=== PATIENT | female | born 1960 | race Caucasian/White ===

== ENCOUNTER 2018-03-15 15:03 | Observation (INO) | payer OTHER ==
[2018-03-15] VITALS (7 sets, daily range): BP systolic 118–143; BP diastolic 74–96; PULSE 62–76; RESP 16–19; TEMP 97.6–98.3; O2SAT 68–96
[~2018-03-15] VITALS: Ht 160 cm; Wt 53.0 kg
[~2018-03-15 15:03] MED LIST: EPIP0.3I IM; HYDR10SO PO; KETO2AER3 TOP
[2018-03-15] MEDS ORDERED: SODIUM CHLORIDE 0.9% FLUSH 10 ML FLUSH IVF PRN (15:15)
--- NOTE | 2018-03-15 15:18 | PD ---
HPI Chief Complaint: Chest Pain Time Seen by Provider: 15:08 Travel History International Travel<30 days: No Contact w/Intl Traveler<30days: No Traveled to known affect area: No History of Present Illness HPI 57-year-old female patient with history of no significant past medical issues, presents to the ER today because she states that she ate a coworkers cake and started feeling very itchy all over, nauseous, and thought that she was having allergic reaction, took Benadryl, and started getting chest discomfort and dizzy. When EMS got there, they noted that she was bradycardic in the 30s at one point, having occasional PVCs, and were concerned about cardiac issues, gave her aspirin and nitroglycerin. In the ER, she states she is still having some chest discomfort but she states it is now subsiding. She denies giving herself any epinephrine even though she has an EpiPen. Modifying Factors: None Associated Signs & Symptoms: Possible allergic reaction, palpitations, dizziness Risk Factors: None PFSH Past Medical History Medical History: Denies Significant Hx Cancer: No Diabetes: No Diminished Hearing: No Glaucoma: No Hepatitis: No Hiatal Hernia: No Hypertension: No Immunizations Current: Yes Thyroid Disease: No Tetanus Vaccination: > 5 Years Influenza Vaccination: No ?: Not Menopausal: Yes Past Surgical History Abdominal Surgery: No Cardiac Surgery: No Section: Yes (X2) Ear Surgery: No Endocrine Surgery: No Eye Surgery: No Genitourinary Surgery: No Gynecologic Surgery: Yes (C/S X2) Oral Surgery: Yes (TONSILLECTOMY) Pacemaker: No Thoracic Surgery: No Tonsillectomy: Yes Other Surgery: Yes Social History Alcohol Use: Yes (GLASS OF WINE DAILY) Tobacco Use: Yes (1/2 PPD X 31 YEARS) Substance Use: No Allergies-Medications (Allergen,Severity, Reaction): Coded Allergies: No Known Allergies (Verified Allergy, Unknown, 03/15/18) Reported Meds & Prescriptions Reported Meds & Active Scripts Active No Active Prescriptions or Reported Medications Review of Systems Except as stated in HPI: all other systems reviewed are Neg Physical Exam Narrative GENERAL: Well-developed middle-age female patient currently in mild distress. Awake and oriented 3. SKIN: Focused skin assessment warm/dry. HEAD: Atraumatic. Normocephalic. EYES: Pupils equal and round. No scleral icterus. No injection or drainage. ENT: No nasal bleeding or discharge. Mucous membranes pink and moist. NECK: Trachea midline. No JVD.-Supple. CARDIOVASCULAR: Regular rate and rhythm. No murmur appreciated. RESPIRATORY: No accessory muscle use. Clear to auscultation. Breath sounds equal bilaterally. GASTROINTESTINAL: Abdomen soft, non-tender, nondistended. Hepatic and splenic margins not palpable. MUSCULOSKELETAL: No obvious deformities. No clubbing. No cyanosis. No edema. NEUROLOGICAL: Awake and alert. No obvious cranial nerve deficits. Motor grossly within normal limits. Normal speech. PSYCHIATRIC: Appropriate mood and affect; insight and judgment normal. Data Data Last Documented VS Vital Signs Date Time Temp Pulse Resp B/P (MAP) Pulse Ox O2 Delivery O2 Flow Rate FiO2 03/15/18 17:02 70 17 133/88 (103) 96 Room Air 03/15/18 15:06 97.6 Orders Orders Electrocardiogram (03/15/18 15:07) Ckmb (Isoenzyme) Profile (03/15/18 15:07) Complete Blood Count With Diff (03/15/18 15:07) Comprehensive Metabolic Panel (03/15/18 15:07) Magnesium (Mg) (03/15/18 15:07) Prothrombin Time / Inr (Pt) (03/15/18 15:07) Act Partial Throm Time (Ptt) (03/15/18 15:07) Troponin I (03/15/18 15:07) Lipase (03/15/18 15:07) Chest, Single Ap (03/15/18 15:07) Ecg Monitoring (03/15/18 15:07) Bilateral Bp Monitoring (03/15/18 15:07) Iv Access Insert/Monitor (03/15/18 15:07) Oximetry (03/15/18 15:07) Oxygen Administration (03/15/18 15:07) Sodium Chloride 0.9% Flush (Ns Flush) (03/15/18 15:15) CKMB (03/15/18 15:55) CKMB% (03/15/18 15:55) Admit Order (Ed Use Only) (03/15/18 17:12) Labs Laboratory Tests Test 03/15/18 15:10 03/15/18 15:55 White Blood Count 6.4 TH/MM3 Red Blood Count 4.77 MIL/MM3 Hemoglobin 15.9 GM/DL Hematocrit 46.1 % Mean Corpuscular Volume 96.6 FL Mean Corpuscular Hemoglobin 33.2 PG Mean Corpuscular Hemoglobin Concent 34.4 % Red Cell Distribution Width 13.0 % Platelet Count 168 TH/MM3 Mean Platelet Volume 8.5 FL Neutrophils (%) (Auto) 59.2 % Lymphocytes (%) (Auto) 35.3 % Monocytes (%) (Auto) 5.1 % Eosinophils (%) (Auto) 0.2 % Basophils (%) (Auto) 0.2 % Neutrophils # (Auto) 3.8 TH/MM3 Lymphocytes # (Auto) 2.3 TH/MM3 Monocytes # (Auto) 0.3 TH/MM3 Eosinophils # (Auto) 0.0 TH/MM3 Basophils # (Auto) 0.0 TH/MM3 CBC Comment DIFF FINAL Differential Comment Prothrombin Time 10.7 SEC Prothromb Time International Ratio 1.1 RATIO Activated Partial Thromboplast Time 23.3 SEC Blood Urea Nitrogen 15 MG/DL Creatinine 0.67 MG/DL Random Glucose 113 MG/DL Total Protein 6.5 GM/DL Albumin 3.9 GM/DL Calcium Level 8.5 MG/DL Magnesium Level 1.8 MG/DL Alkaline Phosphatase 79 U/L Aspartate Amino Transf (AST/SGOT) 13 U/L Alanine Aminotransferase (ALT/SGPT) 20 U/L Total Bilirubin 0.4 MG/DL Sodium Level 141 MEQ/L Potassium Level 3.7 MEQ/L Chloride Level 104 MEQ/L Carbon Dioxide Level 27.7 MEQ/L Anion Gap 9 MEQ/L Estimat Glomerular Filtration Rate 91 ML/MIN Total Creatine Kinase 131 U/L Creatine Kinase MB 2.2 NG/ML Troponin I LESS THAN 0.02 NG/ML Lipase 174 U/L MDM Medical Decision Making Medical Screen Exam Complete: Yes Emergency Medical Condition: Yes Medical Record Reviewed: Yes Interpretation(s) EKG shows NSR, no ST elevation or depression, and no arrhythmias. No significant T-wave inversions. Laboratory Tests Test 03/15/18 15:10 03/15/18 15:55 Hemoglobin 15.9 GM/DL (11.6-15.3) Hematocrit 46.1 % (35.0-46.0) Activated Partial Thromboplast Time 23.3 SEC (24.3-30.1) Random Glucose 113 MG/DL (74-106) Aspartate Amino Transf (AST/SGOT) 13 U/L (15-37) Troponin I LESS THAN 0.02 NG/ML Last 24 hours Impressions Chest X-Ray 03/15/18 1507 Signed Impressions: Service Date/Time: Thursday, March 15, 2018 15:11 - CONCLUSION: No acute disease. Patrick Ellis MD FACR Differential Diagnosis Allergic reaction versus ACS versus dysrhythmias versus medication side effect Narrative Course EKG did not show any signs of dysrhythmias. Lab work was fairly unremarkable. Chest x-ray was unremarkable. Patient did not have further episodes of dysrhythmias in the ER. At this point, I am a little concerned about her symptoms and whether the bradycardia could have been related to some underlying cardiac issue or a medication side effect. At this point, my plan would be to admit the patient for further evaluation. Case was discussed with [facility] hospitalist Dr. Pina for admission. Diagnosis Primary Impression: Atypical chest pain Admitting Information Admitting Physician Requests: Admit Scripts No Active Prescriptions or Reported Meds Kelsey Luther MD March 15, 2018 15:18
[2018-03-15 15:26] LABS: AUTOMATED NEUTROPHIL # 3.8 TH/MM3 (1.8-7.7); BASOPHIL % 0.2 % (0.0-2.0); EOSINOPHIL % 0.2 % (0.0-4.0); HEMATOCRIT 46.1 % (35.0-46.0); HEMOGLOBIN 15.9 GM/DL (11.6-15.3); LYMPH % 35.3 % (9.0-44.0); LYMPHOCYTE # 2.3 TH/MM3 (1.0-4.8); MEAN CELL VOLUME 96.6 FL (80.0-100.0); MEAN CORPUSCULAR HEMOGLOBIN 33.2 PG (27.0-34.0); MEAN CORPUSCULAR HGB CONC 34.4 % (32.0-36.0); MEAN PLATELET VOLUME 8.5 FL (7.0-11.0); MONO % 5.1 % (0.0-8.0); MONOCYTE # 0.3 TH/MM3 (0-0.9); NEUT % 59.2 % (16.0-70.0); PLATELET COUNT 168 TH/MM3 (150-450); RED BLOOD COUNT 4.77 MIL/MM3 (4.00-5.30); WHITE BLOOD COUNT 6.4 TH/MM3 (4.0-11.0)
[2018-03-15 15:33] LABS: INTERNATIONAL NORMALIZED RATIO 1.1 RATIO; PROTHROMBIN TIME - PATIENT 10.7 SEC (9.8-11.6)
--- NOTE | 2018-03-15 15:45 | RADRPT ---
EXAM DATE/TIME: 03/15/2018 15:11 [place] COMPARISON: No previous studies available for comparison. INDICATIONS : Chest pain. MEDICAL HISTORY : None. SURGICAL HISTORY : None. ENCOUNTER: Initial ACUITY: 1 day PAIN SCORE: 3/10 LOCATION: chest FINDINGS: A single view of the chest demonstrates the lungs to be symmetrically aerated without evidence of mas s, infiltrate or effusion. The cardiomediastinal contours are unremarkable. Osseous structures are intact. CONCLUSION: No acute disease. Patrick Ellis MD FACR on March 15, 2018 at 15:43 Board Certified Radiologist. This report was verified electronically.
[2018-03-15 16:36] LABS: ALBUMIN 3.9 GM/DL (3.4-5.0); ALT (GPT) 20 U/L (10-53); AST (GOT) 13 U/L (15-37); BICARBONATE 27.7 MEQ/L (21.0-32.0); BLOOD UREA NITROGEN 15 MG/DL (7-18); CALCIUM 8.5 MG/DL (8.5-10.1); CHLORIDE 104 MEQ/L (98-107); CREATININE 0.67 MG/DL (0.50-1.00); GLOMERULAR FILTRATION RATE 91 ML/MIN (>89); GLUCOSE,RANDOM 113 MG/DL (74-106); MAGNESIUM 1.8 MG/DL (1.5-2.5); SODIUM (NA) 141 MEQ/L (136-145)
[2018-03-15 16:41] LABS: ALKALINE PHOSPHATASE 79 U/L (45-117); TOTAL BILIRUBIN ADULT 0.4 MG/DL (0.2-1.0); TOTAL PROTEIN 6.5 GM/DL (6.4-8.2); TROPONIN I LESS THAN 0.02 NG/ML (0.02-0.05)
[2018-03-15] MEDS ORDERED: ONDANSETRON HCL 4 MG/2 ML VIAL IVP PRN (17:30)
[2018-03-15] MEDS ORDERED: SENNOSIDES 8.6 MG TAB PO PRN (17:30)
[2018-03-15] MEDS ORDERED: SODIUM CHLORIDE 0.9% FLUSH 10 ML FLUSH IV FLUSH PRN (17:30)
[2018-03-15] MEDS ORDERED: LACTULOSE SYRUP 20 GM/30 ML CUP PO PRN (17:30)
[2018-03-15] MEDS ORDERED: ACETAMINOPHEN 325 MG TAB PO PRN (17:30)
[2018-03-15] MEDS ORDERED: MAGNESIUM HYDROXIDE SUSP 30 ML CUP PO PRN (17:30)
[2018-03-15] MEDS ORDERED: NALOXONE HCL 0.4 MG/ML AMP IV PUSH PRN (17:30)
[2018-03-15] MEDS ORDERED: BISACODYL 10 MG SUPP RECTAL PRN (17:30)
[2018-03-15] MEDS ORDERED: ACETAMINOPHEN/HYDROcodone 325 MG/10 MG TAB PO PRN (17:45)
[2018-03-15 18:25] LABS: TROPONIN I LESS THAN 0.02 NG/ML (0.02-0.05)
[2018-03-15] MEDS: SODIUM CHLORIDE 0.9% FLUSH 10 ML FLUSH IV FLUSH SCH (19:43)
[2018-03-16 02:22] VITALS: PULSE 71
[2018-03-16 04:05] VITALS: BP 118/70; PULSE 60; RESP 16; TEMP 99.2; O2SAT 98
[2018-03-16 08:04] VITALS: BP 130/81; PULSE 66; RESP 18; TEMP 98; O2SAT 94
[2018-03-16 08:13] LABS: BICARBONATE 28.1 MEQ/L (21.0-32.0); CALCIUM 8.9 MG/DL (8.5-10.1); CREATININE 0.64 MG/DL (0.50-1.00)
[2018-03-16 08:16] LABS: TROPONIN I LESS THAN 0.02 NG/ML (0.02-0.05)
[2018-03-16 09:00] VITALS: PULSE 64
[2018-03-16] MEDS: SODIUM CHLORIDE 0.9% FLUSH 10 ML FLUSH IV FLUSH SCH (09:00)
--- NOTE | 2018-03-16 09:41 | HHI.HP ---
HPI Service [facility] Hospitalists Primary Care Physician Armando Nolasco MD Admission Diagnosis Atypical chest pain Chief Complaint: Possible allergic reaction Travel History International Travel<30 Days: No Contact w/Intl Traveler <30 Da: No Traveled to Known Affected Are: No History of Present Illness Mrs. Hardy is a pleasant 57 y/o WF with arthritis and chronic neck pain. She presented to the ED at [facility] on 03/15/18 for a presumed allergic reaction. 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 Within 15 minutes she was having generalized itching and her hands and feet were red. She felt like her lips, tongue and throat were swelling, felt lightheaded and shaky and felt like she was going to pass out. She had a severe allergic reaction to red ant bites in the past and felt that these symptoms were similar. Pt took 2 Benadryl about 45-60mins after onset of symptoms with some improvement in the itching but her hands still felt like "pins and needles." She felt like she had significant pressure in the epigastric area which felt like she needed to belch when she arrived to the ED. She reports that she had been taking some deep breaths and felt that this may have caused this sensation. A coworker called [employer] and per the ED notes when EMS got there, they noted that she was bradycardic in the 30s at one point, having occasional PVCs, and were concerned about cardiac issues, so they gave her aspirin and nitroglycerin. Pt did not have any change in her symptoms with the ASA and Nitro. By the time she arrived to the ED the itching and pins and needles feeling had resolved but the pt still felt swollen. The epigastric/lower chest pressure resolved overnight. Overnight pts swelling sensation has resolved as well. She did not require any further Benadryl or Epinephrine in the ED. She had some nausea overnight but this resolved with Zofran. There have been no abnormalities noted on telemetry overnight. This morning pt feels at her baseline and wants to go home. Review of Systems Constitutional: DENIES: Diaphoretic episodes, Fever, Chills, Dizziness Eyes: DENIES: Vision loss Ears, nose, mouth, throat: DENIES: Hearing loss Respiratory: DENIES: Cough, Shortness of breath Cardiovascular: DENIES: Chest pain, Lower Extremity Edema Gastrointestinal: COMPLAINS OF: Nausea, DENIES: Abdominal pain, Constipation, Diarrhea, Vomiting Genitourinary: DENIES: Urinary incontinence, Hematuria, Dysuria Musculoskeletal: COMPLAINS OF: Joint pain (chronic) Integumentary: COMPLAINS OF: Abnormal pigmentation, Pruritus Neurologic: DENIES: Headache Psychiatric: DENIES: Confusion Past Family Social History Past Medical History Arthritis in her hand/neck Past Surgical History Cesarian section x 2 Bilateral breast augmentation Reported Medications Hydrocodone/Acetaminophen 10/325mg takes 1-3 tablets per day PRN Allergies: Coded Allergies: No Known Allergies (Verified Allergy, Unknown, 03/15/18) Family History Noncontributory Social History (+)tobacco use, 1/2ppd since age 15 (+)alcohol use, drinks about 3-5 glasses per week Denies any illicit drug use Pt works as a chairman She has two children, ages 26 and 22. Pt is . Physical Exam Vital Signs Vital Signs Date Time Temp Pulse Resp B/P (MAP) Pulse Ox O2 Delivery O2 Flow Rate FiO2 03/16/18 08:04 98.0 66 18 130/81 (97) 94 03/16/18 04:05 99.2 60 16 118/70 (86) 98 03/16/18 02:22 71 03/15/18 23:35 98.0 62 16 126/74 (91) 93 03/15/18 19:51 98.3 70 16 124/80 (95) 96 03/15/18 18:13 98.2 68 18 119/85 (96) 68 03/15/18 17:46 03/15/18 17:02 70 17 133/88 (103) 96 Room Air 03/15/18 15:17 118/81 (93) 143/96 (112) 03/15/18 15:14 94 Room Air 03/15/18 15:06 97.6 76 19 118/81 (93) 94 Physical Exam GENERAL: This is a well-nourished, well-developed patient, in no apparent distress. SKIN: No rashes, ecchymoses or lesions. Cool and dry. HEENT: Atraumatic. Normocephalic. No temporal or scalp tenderness. No scleral icterus. Airway patent. NECK: Trachea midline, supple, nontender. CARDIO: Regular. RESP: CTA bilaterally. No wheezes, rales, or rhonchi. ABD: +BS, soft, non-tender, nondistended. EXT: Extremities without clubbing, cyanosis, or edema. NEURO: Awake and alert. Motor and sensory grossly within normal limits. Normal speech. Laboratory Laboratory Tests Test 03/15/18 15:10 03/15/18 15:55 03/15/18 17:40 03/16/18 06:50 White Blood Count 6.4 Red Blood Count 4.77 Hemoglobin 15.9 Hematocrit 46.1 Mean Corpuscular Volume 96.6 Mean Corpuscular Hemoglobin 33.2 Mean Corpuscular Hemoglobin Concent 34.4 Red Cell Distribution Width 13.0 Platelet Count 168 Mean Platelet Volume 8.5 Neutrophils (%) (Auto) 59.2 Lymphocytes (%) (Auto) 35.3 Monocytes (%) (Auto) 5.1 Eosinophils (%) (Auto) 0.2 Basophils (%) (Auto) 0.2 Neutrophils # (Auto) 3.8 Lymphocytes # (Auto) 2.3 Monocytes # (Auto) 0.3 Eosinophils # (Auto) 0.0 Basophils # (Auto) 0.0 CBC Comment DIFF FINAL Differential Comment Prothrombin Time 10.7 Prothromb Time International Ratio 1.1 Activated Partial Thromboplast Time 23.3 Blood Urea Nitrogen 15 10 Creatinine 0.67 0.64 Random Glucose 113 90 Total Protein 6.5 Albumin 3.9 Calcium Level 8.5 8.9 Magnesium Level 1.8 Alkaline Phosphatase 79 Aspartate Amino Transf (AST/SGOT) 13 Alanine Aminotransferase (ALT/SGPT) 20 Total Bilirubin 0.4 Sodium Level 141 144 Potassium Level 3.7 4.0 Chloride Level 104 107 Carbon Dioxide Level 27.7 28.1 Anion Gap 9 9 Estimat Glomerular Filtration Rate 91 96 Total Creatine Kinase 131 122 78 Creatine Kinase MB 2.2 Troponin I LESS THAN 0.02 LESS THAN 0.02 LESS THAN 0.02 Lipase 174 Result Diagram: 03/15/18 1510 03/16/18 0650 Imaging Last Impressions Chest X-Ray 03/15/18 1507 Signed Impressions: Service Date/Time: Thursday, March 15, 2018 15:11 - CONCLUSION: No acute disease. Patrick Ellis MD FACShannan Naranjoi VTE Risk Assessment Caprini VTE Risk Assessment: No/Low Risk (score <= 1) Caprini Risk Assessment Model Point Value = 1 Point Value = 2 Point Value = 3 Point Value = 5 Age 41-60 Minor surgery BMI > 25 kg/m2 Swollen legs Varicose veins or History of unexplained or recurrent spontaneous Oral contraceptives or hormone replacement Sepsis (< 1 month) Serious lung disease, including pneumonia (< 1 month) Abnormal pulmonary function Acute myocardial infarction Congestive heart failure (< 1 month) History of inflammatory bowel disease Medical patient at bed rest Age 61-74 Arthroscopic surgery Major open surgery (> 45 min) Laparoscopic surgery (> 45 min) Malignancy Confined to bed (> 72 hours) Immobilizing plaster cast Central venous access Age >= 75 History of VTE Family history of VTE Factor V Leiden Prothrombin [id number] Lupus anticoagulant Anticardiolipin antibodies Elevated serum homocysteine Heparin-induced thrombocytopenia Other congenital or acquired thrombophilia Stroke (< 1 month) Elective arthroplasty Hip, pelvis, or leg fracture Acute spinal cord injury (< 1 month) Prophylaxis Regimen Total Risk Factor Score Risk Level Prophylaxis Regimen 0-1 Low Early ambulation 2 Moderate Order ONE of the following: *Sequential Compression Device (SCD) *Heparin 5000 units SQ BID 3-4 Higher Order ONE of the following medications: *Heparin 5000 units SQ TID *Enoxaparin/Lovenox 40 mg SQ daily (WT < 150 kg, CrCl > 30 mL/min) *Enoxaparin/Lovenox 30 mg SQ daily (WT < 150 kg, CrCl > 10-29 mL/min) *Enoxaparin/Lovenox 30 mg SQ BID (WT < 150 kg, CrCl > 30 mL/min) AND/OR *Sequential Compression Device (SCD) 5 or more Highest Order ONE of the following medications: *Heparin 5000 units SQ TID (Preferred with Epidurals) *Enoxaparin/Lovenox 40 mg SQ daily (WT < 150 kg, CrCl > 30 mL/min) *Enoxaparin/Lovenox 30 mg SQ daily (WT < 150 kg, CrCl > 10-29 mL/min) *Enoxaparin/Lovenox 30 mg SQ BID (WT < 150 kg, CrCl > 30 mL/min) AND *Sequential Compression Device (SCD) Assessment and Plan Problem List: (1) Allergic reaction ICD Codes: T78.40XA - Allergy, unspecified, initial encounter Status: Acute Plan: Allergic reaction - Pt is a 57 y/o WF with arthritis and chronic neck pain. She presented to the ED at [facility] on 03/15/18 for a presumed allergic reaction. - She ate a piece of home made cake that one of her clients brought to her yesterday, reportedly a "Amish apple pound cake." Within 15 minutes she was having generalized itching and her hands and feet were red. She felt like her lips, tongue and throat were swelling, felt lightheaded and shaky and felt like she was going to pass out. She had a severe allergic reaction to red ant bites in the past and felt that these symptoms were similar. Pt took 2 Benadryl about 45-60mins after onset of symptoms with some improvement in the itching but her hands still felt like "pins and needles." - She did not require any further Benadryl or Epinephrine in the ED. All of her symptoms have resolved - Pt has an Epipen which he had due to her previous allergic reaction to red ant bites - Pt is anxious for discharge this morning. - Pt is planning to find out what ingredients were in the cake that she ate yesterday. - She is instructed to avoid those ingredients until she can followup as an outpt for allergy testing. - She is to continue to carry her EpiPen - Pt will need to followup with her PCP, Dr. Raphael Nolasco, in 1 week. Atypical chest pain - During the episode of her possible allergic reaction she felt like she had significant pressure in the epigastric area which felt like she needed to belch when she arrived to the ED. She reports that she had been taking some deep breaths and felt that this may have caused this sensation. - According to the ED notes when EMS got there, they noted that she was bradycardic in the 30s at one point, having occasional PVCs, and were concerned about cardiac issues, so they gave her aspirin and nitroglycerin. Pt did not have any change in her symptoms with the ASA and Nitro. - There have been no abnormalities noted on telemetry overnight. This morning she had some recordings of sinus bradycardia in the 50's. - Serial CE have been negative. - I do not have any strips from [facility] to confirm any abnormal heart rhythm. Could have been a vagal response. Review of outpt records notes that the pt has HRs typically in the 60-70s. - Set up Holter monitor which can be followed up on by her PCP as an outpt. (2) Atypical chest pain ICD Codes: R07.89 - Other chest pain Status: Acute Assessment and Plan Patient examined. Assessment and plan formulated with Priyanka Corona PA-C. I agree with the above. pt had allergic reaction after eating a cake at work. It was a home made cake and we don't have the ingredient list. pt sx's resolved after benadryl. reports of diana in ambulance. Pt HR on review of clinic records is around 60. will send her home with 24hr holter and f/u pcp for results. She is eager for d/c home and agrees. Problem Qualifiers (1) Allergic reaction: Qualified Codes: T78.40XA - Allergy, unspecified, initial encounter Priyanka Corona March 16, 2018 09:41 Jovan Mei MD March 16, 2018 13:33
--- NOTE | 2018-03-16 10:13 | HHI.DCPOC ---
Discharge Care Plan Diagnosis: (1) Allergic reaction (2) Atypical chest pain Goals to Promote Your Health * To prevent worsening of your condition and complications * To maintain your health at the optimal level Directions to Meet Your Goals Take your medications as prescribed Follow your dietary instruction Follow activity as directed Keep your appointments as scheduled Take your immunizations and boosters as scheduled If your symptoms worsen call your PCP, if no PCP go to Urgent Care Center or Emergency Room Smoking is Dangerous to Your Health. Avoid second hand smoke Call the 24-hour hour crisis hotline for domestic abuse at Priyanka Corona March 16, 2018 10:13
[2018-03-16 11:39] VITALS: BP 122/81; PULSE 69; RESP 18; TEMP 98.3; O2SAT 95
[2018-03-16] MEDS ORDERED: HYDR-3583 PO (13:26)
--- NOTE | 2018-03-16 14:00 | EKG ---
Date Performed: 03/15/2018 Time Performed: 23:31:33 PTAGE: 57 years EKG: Sinus rhythm NORMAL ECG INTERPRETATION BASED ON A DEFAULT AGE OF 40 YEARS NO PREVIOUS TRACING DOCTOR: Eliecer Dunne Interpretating Date/Time 03/16/2018 13:59:29
--- NOTE | 2018-03-16 14:00 | EKG ---
Date Performed: 03/15/2018 Time Performed: 17:43:49 PTAGE: 57 years EKG: Sinus rhythm POSSIBLE LEFT ATRIAL ENLARGEMENT BORDERLINE LEFT AXIS DEVIATION NONSPECIFIC T-WAVE ABNORMALITY TOYIN ALFARO ECG NO PREVIOUS TRACING DOCTOR: Eliecer Dunne Interpretating Date/Time 03/16/2018 13:59:50
--- NOTE | 2018-03-16 14:00 | EKG ---
Date Performed: 03/15/2018 Time Performed: 15:11:02 PTAGE: 57 years EKG: Sinus rhythm BORDERLINE LEFT AXIS DEVIATION BORDERLINE ECG NO PREVIOUS TRACING DOCTOR: Eliecer Dunne Interpretating Date/Time 03/16/2018 14:00:01
--- NOTE | 2018-03-18 11:50 | HM ---
Date Performed: 03/16/2018 Time Performed: 12:38:00 HOOKUP DATE: 03/16/18 12:38:00 PM Sat ANALYSIS START TIME: 03/16/2018 12:43:00 PM ANALYSIS END TIME: 03/17/2018 12:46:59 PM PATIENT AGE: 57 PATIENT HEIGHT PATIENT WEIGHT DRUG LIST PATIENT DIAGNOSIS TEST NARRATIVE: The patient's average heart rate was 80 BPM. Heart rates greater than 120 B PM were noted 4% of the time. Heart rates less than 50 BPM were noted < 1% of the time. No pause s exceeding 2.0 seconds were noted. 6260 ventricular ectopics, which represented 5% of the total beat count, were noted. The highest ventricular ectopic frequency occurred from 11:00 AM to 12:00 PM Sun. During this time 582 VE(s) occurred. Ventricular ectopics were observed as 6130 isolated beat (s) and as 65 couplet(s). No runs were noted. Some of the ventricular beats occurred in bigeminal c ycles. 2 supraventricular ectopics, which represented < 1% of the total beat count, were noted. The highest supraventricular ectopic frequency occurred from 01:00 AM to 02:00 AM Sun. During this t marcin 1 SVE(s) occurred. No episodes of ST depression (defined as -1.0 mm or more) were noted in ch anisha 1. No episodes of ST depression (defined as -1.0 mm or more) were noted in channel 2. No epis odes of ST depression (defined as -1.0 mm or more) were noted in channel 3. TEST INTERPRETATION: The Holter monitor demonstrates normal Sinus rhythm with sinus bradycardia to 49 beats per minute at 1:30pm and sinus tachycardia to 135 beats per minut e at 8:00am. Occasional PVC was noted with a rare PAC. Several ventricular couplets were seen. No darlyn tricular tachycardia, paroxysmal diana arrhythmias or atrial fibrillation was noted. Signed by : Tyler Agarwal
== END 2018-03-16 14:39 | disposition home or self-care (01) ==
LOC: NEPC 15:03 → NEDA 17:14 → NEPHCDU 18:09
PROVIDERS: ADMIT Family Medicine; ATTEND Family Medicine
DX: R07.89 Other chest pain (principal); T78.40XA Allergy, unspecified, initial encounter; I49.3 Ventricular premature depolarization; R94.31 Abnormal electrocardiogram [ECG] [EKG]; L29.9 Pruritus, unspecified; M19.90 Unspecified osteoarthritis, unspecified site; M54.2 Cervicalgia; G89.29 Other chronic pain; Z72.0 Tobacco use
CPT/HCPCS: 71045; 80048; 80053; 82550; 82552; 83690; 83735; 84484; 85025; 85610; 85730; 93005; 93225; 93226; 96374; 99285; G0378; J2405